=== PATIENT | female | born 1965 | race Caucasian/White ===

== ENCOUNTER 2024-12-09 16:48 | Emergency (ER) | payer SELFPAY ==
[2024-12-09 16:59] VITALS: BP 146/90
--- NOTE | 2024-12-09 19:46 | ED.MUSCINJ ---
HPI-Injury
General
Chief Complaint: Musculo-Skeletal Complaint
Source: patient
Exam Limitations: none
Time Seen by Provider: 12/09/24 19:05
History of Present Illness-Injury
Initial Injury comments:
59-year-old [id number] female presents complaining of right wrist and elbow pain starting today. She tripped and fell backwards putting her hand out to stop her fall. She did not hit her head. She denies neck or back pain. No other
Phy Exam
Physical Exam
Physical Exam:
General: Well-appearing female no acute distress
Musculoskeletal exam: The spine is nontender she is tender about the right elbow and the right wrist. No significant deformities able to move all the fingers of the right hand
Vascular 2+ radial pulse right wrist
Injury Course
Orders/Labs/Results
Orders:
Orders
12/09/24 17:02
Wrist, Right 3 Views [CR Wrist - Right Min 3 Views] Urgent
Comment:
Reason For Exam: FALL/PAIN/SWELLING
12/09/24 19:12
CR Elbow - Right Min 3 Views Urgent
Comment:
Reason For Exam: fall, pain
MDM/Problems Addressed
Differential Diagnosis Includes:
Mechanical fall with right wrist pain. Consider fracture of her sprain versus dislocation. X-rays of the right elbow and wrist were ordered
I personally visualized x-rays of the right wrist and elbow which demonstrate an impacted fracture of the distal radius. Patient placed in a sugar-tong splint and will be advised to follow-up with orthopedics.
*Critical Care Note
Total Time (30-74mins, 75-104mins- exclusive of procedures): Not Applicable
ED Attending Note
-
Portions of this chart may have been created with voice recognition software.� Occasional wrong word or��sound alike� substitutions may have occurred due to the inherent limitations of voice recognition software.
Discharge Plan
Departure
Patient Disposition: Home (Routine Discharge)
Date of Disposition: 12/09/24
Time of Disposition: 19:48
Patient with high blood pressure during this ER visit?: No
Discharge Problem:
Distal radius fracture, right
Instructions: Muscle and Bone Pain (DC)
Referrals:
Melissa Coates I., DO [Active, Orthopedics]
Activity Restrictions/Additional Instructions:
Keep splint on and dry. Elevate for swelling. Use Tylenol or Aleve for pain. Follow-up with orthopedics for next available appointment
Interventions
Interventions:
*Risk Screen - Suicide Last Done: 12/09/24 16:59
*General Assessment Last Done: 12/09/24 19:06
*Neglect/Abuse Screening Last Done: 12/09/24 16:59
*ED- Fall Risk Assessment Last Done: 12/09/24 19:06
*ED COVID-19 Vaccine History Last Done: 12/09/24 19:06
ED-Musculoskeletal Assessment Last Done: 12/09/24 19:06
Discharge Date and Time
Print Language: ARABIC
[2024-12-09 20:30] VITALS: BP 129/87
== END 2024-12-09 20:30 | disposition home or self-care (01) ==
LOC: EMR 16:48
PROVIDERS: EMERGENCY PHYSICIAN Emergency Medicine; FAMILY PHYSICIAN Family Medicine
DX: S52.591A Other fractures of lower end of right radius, initial encounter for closed fracture (principal); W01.0XXA Fall on same level from slipping, tripping and stumbling without subsequent striking against object, initial encounter
CPT/HCPCS: 99283; 29125; 73080; 73110

== ENCOUNTER → 2025-03-30 10:29 | Outpatient (REF) | payer OTHER, SELFPAY ==
[2025-03-30 11:30] LABS: Hematocrit 40.3 % (37.0-47.0); Hemoglobin 13.8 g/dL (12.0-16.0); Mean Corp Hgb Conc. 34.2 g/dL (33.0-37.0); Mean Corpuscular Volume 91.4 fL (81.0-99.0); Nucleated Red Blood Cells % 0 %; Platelet Count 276 10^3/uL (130-400); Red Cell Dist. Width 12.8 % (11.5-14.5)
[2025-03-30 13:19] LABS: Blood Urea Nitrogen 23 mg/dl (7-17); Calcium 9.9 mg/dl (8.4-10.2); Carbon Dioxide 28 mmol/L (22-30); Chloride 103 mmol/L (98-107); Glucose 59 mg/dl (70-99); Potassium 4.5 mmol/L (3.5-5.1); Sodium 139 mmol/L (135-145); eGFR > 60.00
== END ==
LOC: RCS 10:29
PROVIDERS: ATTENDING PHYSICIAN Orthopaedic Surgery Hand Surgery; FAMILY PHYSICIAN Family Medicine
DX: Z01.818 Encounter for other preprocedural examination (principal)
CPT/HCPCS: 36415; 80048; 85025; 93005